=== PATIENT | female | born 1995 | race Caucasian/White ===

== ENCOUNTER 2020-08-27 09:41 | Emergency (ER) | payer OTHER ==
[~2020-08-27] VITALS: Ht 157.5 cm; Wt 56.0 kg
[2020-08-27 11:15] VITALS: BP 116/74
== END 2020-08-27 11:27 | disposition home or self-care (01) ==
LOC: EMS 09:46
DX: Z11.1 Encounter for screening for respiratory tuberculosis (principal)
CPT/HCPCS: 71045; 99283

== ENCOUNTER 2020-10-05 18:36 | Emergency (ER) | payer OTHER ==
[~2020-10-05] VITALS: Ht 160 cm; Wt 50.0 kg
[2020-10-05 19:49] VITALS: BP 119/71
== END 2020-10-05 19:54 | disposition home or self-care (01) ==
LOC: EMS 18:36
DX: F41.9 Anxiety disorder, unspecified (principal); R55 Syncope and collapse
CPT/HCPCS: 99283